=== PATIENT | female | born 1965 | race Asian ===

== ENCOUNTER 2024-05-28 02:58 | Emergency (ER) | payer BC, SELFPAY ==
[2024-05-28 02:59] VITALS: BMI 25.4
--- NOTE | 2024-05-28 03:00 | PD.EDHA ---
ED Headache RME/HPI General Chief Complaint: Headache Stated Complaint: HEADACHE THINKS BP HIGH Time Seen by Provider: 05/28/24 02:59 Arrival date/time: 05/28/24 02:58 RME / HPI RME / HPI Narrative: This section includes all my notes and documentations, including HPI, PE, and ED course. Chapo Majano MD HPI: 58yo female with a history of HTN on losartan (qHS), metoprolol (qAM) accompanied by her daughter presents to the ED for a chief complaint of a headache. Patient states her blood pressure has been elevated today, reporting the highest was 200s/100s. Patient states she took her losartan late today. She reports associated dizziness, lightheadedness, nausea, and cough. She denies any vomiting, chest pain or any other associated symptoms. No other complaints reported. ROS: All negative except as documented in HPI. Physical Exam: General: Alert and oriented. Appears uncomfortable. Eyes: Conjunctivae and lids clear. PERRL. EOMI. ENT: No nasal congestion. Pharynx normal. TM normal bilaterally. Neck: Supple. No carotid bruit. No JVD. Heart: RRR. Lungs: No respiratory distress. Good air movement. No rhonchi, wheezing, rales. Abdomen: Soft and nontender. Legs: No clubbing, cyanosis, edema. Skin: Warm and dry. Neuro: Alert and oriented X 3. Cranial nerves II to XII grossly normal. No peripheral motor deficits. I reviewed all diagnostic test results. My interpretation of the EKG is sinus rhythm with no acute ST?T changes. My review of the head CT report is no acute findings. Blood tests and urine tests unremarkable. At this point, diagnoses include hypertensive urgency. Treatment here included oral clonidine 0.3 mg and oral metoprolol 100 mg. Significant improvement noted both subjectively and objectively. Increase metoprolol and recommended more outpatient care. Based on my best medical judgment, made decision no further evaluation or treatment indicated at this time. Patient understands and agrees to the discharge instructions customized and printed, see below. Discharge Instructions from Dr. Majano printed for you: 1. After extensive evaluation, there is no immediately life-threatening condition. Such as stroke or brain tumor or heart attack. 2. But to prevent future heart attacks and strokes, replace your current metoprolol (50 mg every morning) TO metoprolol 100 mg in the morning and in the night as prescribed. You will live longer with lower BP and slower heart rate. 3. See your private doctor on 05/31/2024 for recheck and further care. To make sure there is no serious underlying heart condition, ask to help you get more tests for your heart that cannot be done here in the ER. Such as Holter Monitor (cardiac monitoring at home from a day to even a month), heart stress test (on treadmill or with medication), echocardiogram (imaging of your heart structures), heart catherization (checking for blockages in your heart arteries), and a referral to see a Administrative Assistant Receptionist. 4. Seek immediate medical care with worsening or with any concerns. Chapo Majano MD Related Data Home Medications ?Medication ?Instructions ?Recorded ?Confirmed losartan 100 mg tablet 1 tab PO HS 01/22/22 01/22/22 metoprolol succinate 25 mg 1 tab PO DAILY 01/22/22 01/22/22 tablet,extended release 24 hr Previous Rx's ?Medication ?Instructions ?Recorded docusate sodium 100 mg capsule 100 mg PO BID #40 caps 01/23/22 (Colace) hydrocodone 5 mg-acetaminophen 325 1 tab PO Q8H PRN pain (scale score 01/23/22 mg tablet 7-10) #15 tabs ibuprofen 600 mg tablet 600 mg PO Q8H PRN pain (scale 01/23/22 score 4-6) #15 tabs metoprolol succinate 100 mg 100 mg PO BID #60 ea 05/28/24 capsule sprinkle, ext. release 24 hr Allergies Allergy/AdvReac Type Severity Reaction Status Date / Time No Known Allergies Allergy Verified 05/28/24 03:02 Review of Systems Review of Systems Systems Reviewed: All systems reviewed, normal except as documented Past Medical History Past Medical History NEUROLOGIC: Negative Seizures CARDIAC: Positive Hypertension; Negative Cardiac Disorders or Congestive Heart Failure RESPIRATORY: Negative Chronic Obstructive Pulmonary Disease (COPD) or Asthma GENITOURINARY: Negative Renal Disease ENDOCRINE: Negative Diabetes Mellitus Type 1 or Diabetes Mellitus Type 2 HEMATOLOGIC: Negative Sickle Cell Disease OTHER HISTORY: Negative Blood Transfusions, Blood Transfusion Reaction or Anesthesia Reactions Family History FAMILY HISTORY: Negative Family Cardiac Disorders Social History SMOKING STATUS: Never smoker SUBSTANCE USE: does not use ED Exam Narrative Physical exam: As noted in HPI. Course Quality Measures none Orders Category Date Time Status Bedside COVID-19 Antigen Test NOW Care 05/28/24 03:11 Active EKG (ED ONLY) *Do not use* NOW Care 05/28/24 03:11 Completed Straight [In and Out Catheter] X1 Care 05/28/24 03:[address] head/brain wo con Stat Exams 05/28/24 03:11 Taken EKG (ED Only) Stat Exams 05/28/24 03:11 Draft CBC Stat Lab 05/28/24 03:40 Completed CMP [Comprehensive Metabolic Panel] Stat Lab 05/28/24 03:40 Completed Influenza A & B Rapid Panel Stat Lab 05/28/24 03:34 Completed Magnesium Stat Lab 05/28/24 03:40 Completed RSV [Respiratory Syncytial Virus Ag] Stat Lab 05/28/24 03:36 Completed TSH [Thyroid Stimulating Hormone] Stat Lab 05/28/24 03:40 Completed Troponin I Stat Lab 05/28/24 03:40 Completed UA, C/S IF [Urinalysis, C/S if Indicated] Stat Lab 05/28/24 04:03 Completed Metoprolol Tartrate [Lopressor] Med 05/28/24 03:09 Discontinued 100 mg PO X1 ONE Ondansetron Odt [Zofran Odt] Med 05/28/24 03:09 Discontinued 4 mg PO X1 ONE cloNIDine HCL [Catapres] Med 05/28/24 03:09 Discontinued 0.3 mg PO X1 ONE Vital Signs Vital signs: Vital Signs Temperature 98.4 F 05/28/24 03:08 Pulse Rate 91 05/28/24 03:08 Respiratory Rate 18 05/28/24 03:08 Blood Pressure 237/98 H 05/28/24 03:08 Pulse Oximetry (%) 99 05/28/24 03:08 Oxygen Delivery Method Room Air 05/28/24 03:08 Headache Patient data External records reviewed:: [facility] previous records (Per chart review, patient has no relevant previous ED visits.) Clinical information provided by:: patient Social determinants that could affect healthcare access:: none Patient has the following chronic illnesses:: HTN How is presenting disease/condition affected by chronic disease/condition?: exacerbated by Evaluation data The following diagnostics were reviewed and interpreted by me:: lab results, radiology exam(s) and EKG tracing(s) Lab and/or radiology exams considered but not ordered:: none Interpretation Summary: Hypertensive urgency Medications / Prescriptions Medications or Prescriptions considered but not ordered:: none Medication administrations:: Medication Administration History Discontinued Medications Clonidine (Clonidine Hcl 0.1 Mg Tablet) 0.3 mg PO X1 ONE Stop: 05/28/24 03:10 Last Admin: 05/28/24 03:31 Dose: 0.3 mg Documented By: PEDRO LUIS Metoprolol Tartrate (Metoprolol Tartrate 25 Mg Tablet) 100 mg PO X1 ONE Stop: 05/28/24 03:10 Last Admin: 05/28/24 03:31 Dose: 100 mg Documented By: PEDRO LUIS Ondansetron HCl (Ondansetron Odt 4 Mg Tabrap) 4 mg PO X1 ONE; Protocol Stop: 05/28/24 03:10 Last Admin: 05/28/24 03:32 Dose: 4 mg Documented By: PEDRO LUIS Clonidine and metoprolol Consultations Consultation(s) initiated? (list below): No Diagnosis Differential diagnosis headache: migraine, tension headache, subarachnoid hemorrhage and other (CVA, brain tumor, MS) Most likely diagnosis given after review of the tests above:: Hypertensive urgency Admission Indicated Admission indicated?: not indicated Explain why admission is indicated or not indicated:: Admission criteria Admission Request Was there a request for admission?: No Disposition Plan Disposition Plan: Discharge Discharge Attestation Discharge Attestation: The patient and all family members were given an opportunity to ask questions and understood the discharge instructions. Discharge instructions specifically effects, indications for sooner follow up or return to the emergency department, and the expected course of current diagnosis. Patient condition: Stable Discharge Plan Plan Patient Disposition: HOME (Self Care) Prescriptions/Referrals Prescriptions/Med Rec: New metoprolol succinate 100 mg capsule,alexy,ER 24hr 100 mg PO BID Qty: 60 0RF No Action metoprolol succinate 25 mg tablet extended release 24 hr 1 tab PO DAILY losartan 100 mg tablet 1 tab PO HS hydrocodone-acetaminophen 5-325 mg tablet 1 tab PO Q8H MDD 3 PRN (Reason: pain (scale score 7-10)) Qty: 15 0RF docusate sodium [Colace] 100 mg capsule 100 mg PO BID Qty: 40 0RF ibuprofen 600 mg tablet 600 mg PO Q8H PRN (Reason: pain (scale score 4-6)) Qty: 15 0RF Referrals: Trevor Kumar MD [Primary Care Provider] - In 1 week Problem List Clinical Impression: Hypertension Patient/Caregiver Discharge Instructions Discharge Activity: activity as tolerated Education Materials: ED Hypertension, Established Additional Instructions: Discharge Instructions from Dr. Majano printed for you: 1. After extensive evaluation, there is no immediately life-threatening condition. Such as stroke or brain tumor or heart attack. 2. But to prevent future heart attacks and strokes, replace your current metoprolol (50 mg every morning) TO metoprolol 100 mg in the morning and in the night as prescribed. You will live longer with lower BP and slower heart rate. 3. See your private doctor on 05/31/2024 for recheck and further care. To make sure there is no serious underlying heart condition, ask to help you get more tests for your heart that cannot be done here in the ER. Such as Holter Monitor (cardiac monitoring at home from a day to even a month), heart stress test (on treadmill or with medication), echocardiogram (imaging of your heart structures), heart catherization (checking for blockages in your heart arteries), and a referral to see a Administrative Assistant Receptionist. 4. Seek immediate medical care with worsening or with any concerns. Print Language: Indonesian Stand Alone Forms: [facility] Award Info., Patient Portal Info Letter
[2024-05-28 03:08] VITALS: BP 237/98; PULSE 91; RESP 18; TEMP 36.9; O2SAT 99
--- NOTE | 2024-05-28 03:11 | XR_ITS ---
Examination: CT brain head without contrast. 2-D sagittal coronal reconstructions Date and time of exam:May 28, 2024 0325 hrs. Indications: High blood pressure with headache beginning one hour ago CTDI: vol (mGy):47.60 DLP: (mGycm):972 Technique: Multiple CT axial sections of the brain have been obtained, 5 mm slice thickness. Contrast has not been administered. 2-D sagittal, coronal reconstructions have been obtained Low dose protocols were performed. One or more of the following dose reduction techniques were used; automated exposure control, adjustment of the mA and/or KV according to patient size, use of iterative reconstruction technique. Findings: No significant ventricular enlargement. Intra-axial or extra-axial hemorrhage density is not seen. No mass effect or midline shift Basal cisterns are not remarkable. Fourth ventricle is midline. Cranial vault intact. Impression: Negative for acute hemorrhage, mass effect or midline shift Moderate chronic ethmoid sinusitis
--- NOTE | 2024-05-28 03:11 | EKG_ITS ---
[facility] Test Date: 2024-05-28 Pat Name: TERRY HOLLIDAY Department: Room: - Gender: Female [employer]: : 1965 Requested By: Chapo Kilgore Order Number: [id number] Reading MD: Chapo Kilgore Measurements Intervals [place] Rate: 81 P: 31 IN: 143 QRS: 13 QRSD: 68 T: 39 QT: 338 QTc: 395 Interpretive Statements SINUS RHYTHM NONSPECIFIC T-WAVE ABNORMALITY Compared to ECG 02/10/2021 14:36:34 T-wave abnormality now present /store/S0/[id number].pdf
[2024-05-28 03:31] VITALS: BP 237/98; PULSE 91
[2024-05-28] MEDS: METOPROLOL TARTRATE 25 MG TABLET 100 MG PO (03:31)
[2024-05-28] MEDS: cloNIDine HCL 0.1 MG TABLET 0.3 MG PO (03:31)
[2024-05-28] MEDS: ONDANSETRON ODT 4 MG TABRAP PO (03:32)
[2024-05-28 04:06] LABS: Basophils # (Auto) 0.1 Thou/mm3 (0.0-0.2); Basophils % (Auto) 1 % (0-2.5); Eosinophils # (Auto) 0.5 Thou/mm3 (0.0-0.5); Eosinophils % (Auto) 4 % (0-10); Hematocrit 43.4 % (36.0-46.0); Hemoglobin 14.5 g/dL (12.0-16.0); Immature Granulocytes % (Auto) 1 % (0-0); Immature Granulocytes Auto 0.06 Thou/mm3 (0.00-0.00); Lymphocytes % (Auto) 24 % (10-50); Mean Corpuscular HGB Conc 33.4 g/dl (31.0-37.0); Mean Corpuscular Hemoglobin 29.4 pg (25.0-35.0); Mean Corpuscular Volume 88 fL (80-100); Monocytes # (Auto) 0.6 Thou/mm3 (0.0-0.8); Monocytes % (Auto) 5 % (0-12); Neutrophils # (Auto) 8.1 Thou/mm3 (1.8-7.7); Neutrophils % (Auto) 66 % (37-80); Nucleated Red Blood Cell % 0 /100 WBC (0); Platelet Count 282 Thou/mm3 (140-440); RDW Standard Deviation 40.7 fL (36.4-46.3); Red Blood Count 4.93 Miln/mm3 (4.00-5.20); White Blood Count 12.3 Thou/mm3 (3.6-11.0)
[2024-05-28 04:19] LABS: Alanine Aminotransferase 43 U/L (10-49); Albumin, Serum 4.7 gm/dL (3.4-4.8); Albumin/Globulin Ratio 1.5 (1.2-2.2); Alkaline Phosphatase 123 U/L (46-116); Anion Gap 10 (7-16); Aspartate Amino Transferase 22 U/L (0-34); BUN/Creatinine Ratio 14 Ratio (12-20); Bilirubin,Total 0.7 mg/dL (0.3-1.2); Blood Urea Nitrogen 10 mg/dL (9-23); Calcium 9.9 mg/dL (8.3-10.6); Calcium (Corrected) 9.9 mg/dL (8.5-10.1); Carbon Dioxide 26.4 mMol/L (20.0-31.0); Chloride 99 mMol/L (98-107); Creatinine (Component) 0.7 mg/dL (0.6-1.3); Estimated Creatinine Clearance 68.7 mL/min (>60); Globulin 3.1 gm/dL (2.3-3.5); Glucose 174 mg/dL (74-106); Magnesium 1.9 mg/dL (1.6-2.6); Osmolality,Calculated 273 (275-295); Potassium 4.4 mMol/L (3.4-5.1); Sodium 135 mMol/L (136-145); Thyroid Stimulating Hormone 1.09 uIU/mL (0.55-4.78); Total Protein 7.8 gm/dL (5.7-8.2); Troponin I < 0.020 ng/mL (0.0-0.045); eGFR > 60 See Note
[2024-05-28 04:25] LABS: Influenza A Ag Negative; Influenza B Ag Negative
[2024-05-28 04:26] LABS: Respiratory Syncytial Virus Ag Negative (Negative)
[2024-05-28 04:50] LABS: Collection Type, Urine Clean Catch
[2024-05-28 05:05] LABS: Bilirubin,Urine Negative (Negative); Blood,Urine Trace (Negative); Clarity,Urine Clear (Clear/Hazy); Color,Urine Lt-Yellow (Lt Yel-Yel); Culture Indicated,Urine Not Indicated; Glucose, Urine Negative (Negative); Ketones,Urine Negative (Negative); Leukocyte Esterase,Urine Negative (Negative); Nitrite,Urine Negative (Negative); Protein,Urine Negative (Neg - Trace); RBC,Urine 7 /hpf (0-3); Specific Gravity,Urine 1.016 (1.001-1.035); Squamous Epithelial Cell,Urine 1 /hpf (0-5); Urobilinogen,Urine Negative mg/dL (0.0-1.0); WBC,Urine 1 /hpf (0-5)
[2024-05-28 05:11] VITALS: BP 124/75; PULSE 94; RESP 17; TEMP 36.9; O2SAT 99
--- NOTE | 2024-05-28 05:34 | PRELIM_ITS ---
CT scan of the head without intravenous contrast (axial sections with sagittal and coronal reformats) May 28, 2024 at 0325 hoursClinical History: Headache and high BP.Comparison: No prior study is available for comparison. Findings:There is no evidence of intracranial hemorrhage, mass effect or mi dline shift. There is mild volume loss. The calvarium is unremarkable. The mastoid air cells are briseida r. There is mild mucosal thickening in bilateral ethmoid sinuses.Impression:1. No evidence of intracr anial hemorrhage, mass effect or midline shift. 2. Mild volume loss.3. Other findings as described ab ove. Report Electronically Signed By: Rob Bernabe 05/28/2024 5:33:11 AM [EST]
== END 2024-05-28 05:47 | disposition home or self-care (01) ==
PROVIDERS: Emergency Provider Emergency Medicine; PCP Family Medicine
DX: I10 Essential (primary) hypertension (principal); R51.9 Headache, unspecified
CPT/HCPCS: 36415; 70450; 80053; 81001; 83735; 84443; 84484; 85025; 87502; 87634; 87811; 93005; 99284; Q0162; A9270

== ENCOUNTER 2024-06-01 03:30 | Emergency (ER) | payer BC, SELFPAY ==
[2024-06-01 03:42] VITALS: BP 222/106; PULSE 78; RESP 16; TEMP 36.8; O2SAT 99
[2024-06-01 04:04] VITALS: BP 222/106; PULSE 78
[2024-06-01] MEDS: hydrALAZINE HCL 25 MG TABLET PO (04:04)
[2024-06-01 05:05] VITALS: BP 170/77; PULSE 89; RESP 18; TEMP 36.7; O2SAT 98
--- NOTE | 2024-06-01 05:50 | PD.EDHA ---
ED Headache RME/HPI General Chief Complaint: General Adult/Misc Complain Stated Complaint: HIGH BP, FACIAL NUMBNESS Time Seen by Provider: 06/01/24 03:54 Arrival date/time: 06/01/24 03:30 58F with history of HTN presents to ED with elevated BPs and facial numbness. Patient was here several days ago with normal labwork and head CT showing chronic sinusitis. Limitations: no limitations Related Data Home Medications ?Medication ?Instructions ?Recorded ?Confirmed losartan 100 mg tablet 1 tab PO HS 01/22/22 01/22/22 metoprolol succinate 25 mg 1 tab PO DAILY 01/22/22 01/22/22 tablet,extended release 24 hr Previous Rx's ?Medication ?Instructions ?Recorded docusate sodium 100 mg capsule 100 mg PO BID #40 caps 01/23/22 (Colace) hydrocodone 5 mg-acetaminophen 325 1 tab PO Q8H PRN pain (scale score 01/23/22 mg tablet 7-10) #15 tabs ibuprofen 600 mg tablet 600 mg PO Q8H PRN pain (scale 01/23/22 score 4-6) #15 tabs metoprolol succinate 100 mg 100 mg PO BID #60 ea 05/28/24 capsule sprinkle, ext. release 24 hr Allergies Allergy/AdvReac Type Severity Reaction Status Date / Time No Known Allergies Allergy Verified 06/01/24 03:33 Review of Systems Review of Systems Systems Reviewed: All systems reviewed, normal except as documented Constitutional Constitutional: Reports system reviewed and no additional complaints, except as documented, Denies fever(s) and Denies headache(s) ENT Ears, Nose, Mouth, and Throat: Denies disequilibrium and Denies headache(s) Cardiovascular Cardiovascular: Reports system reviewed and no additional complaints, except as documented, Denies chest pain and Denies dyspnea Respiratory Respiratory: Reports system reviewed and no additional complaints, except as documented, Denies cough and Denies dyspnea Gastrointestinal Gastrointestinal: Reports system reviewed and no additional complaints, except as documented, Denies abdominal pain, Denies nausea and Denies vomiting Musculoskeletal Musculoskeletal: Reports numbness Neurologic Neurologic: Reports system reviewed and no additional complaints, except as documented, Reports as per HPI, Denies confusion, Denies disequilibrium, Denies headache(s) and Reports numbness Psychiatric Psychiatric: Denies confusion Past Medical History Past Medical History NEUROLOGIC: Negative Seizures CARDIAC: Positive Hypertension; Negative Cardiac Disorders or Congestive Heart Failure RESPIRATORY: Negative Chronic Obstructive Pulmonary Disease (COPD) or Asthma GENITOURINARY: Negative Renal Disease ENDOCRINE: Negative Diabetes Mellitus Type 1 or Diabetes Mellitus Type 2 HEMATOLOGIC: Negative Sickle Cell Disease OTHER HISTORY: Negative Blood Transfusions, Blood Transfusion Reaction or Anesthesia Reactions Family History FAMILY HISTORY: Negative Family Cardiac Disorders Social History SMOKING STATUS: Never smoker SUBSTANCE USE: does not use ED Exam General Limitations: Present no limitations General appearance: Present alert and in no apparent distress Head Head exam: Present atraumatic Eye Eye exam: Present normal appearance, PERRL and EOMI ENT ENT exam: Present normal exam, normal oropharynx and mucous membranes moist Neck Neck exam: Present normal inspection, full ROM and trachea midline Chest Chest inspection: Present normal inspection and symmetric chest wall rise Respiratory Respiratory exam: Present normal lung sounds bilaterally Cardiovascular Cardiovascular exam: Present regular rate, normal rhythm and normal heart sounds Abdominal Exam Abdominal exam: Present soft and normal bowel sounds Extremities Exam Extremities exam: Present normal inspection and full ROM Back Exam Back exam: Present normal inspection and full ROM Neurological Exam Neurological exam: Present alert, oriented X3 and CN II-XII intact Psychiatric Psychiatric exam: Present normal affect and normal mood Skin Skin exam: Present warm, dry, intact and normal color Course Quality Measures none Orders Category Date Time Status hydrALAZINE HCL [Apresoline] Med 06/01/24 03:55 Discontinued 25 mg PO X1 ONE Vital Signs Vital signs: Vital Signs Temperature 98.3 F 06/01/24 03:42 Pulse Rate 78 06/01/24 03:42 Respiratory Rate 16 06/01/24 03:42 Blood Pressure 222/106 H 06/01/24 03:42 Pulse Oximetry (%) 99 06/01/24 03:42 Oxygen Delivery Method Room Air 06/01/24 03:42 O2 at 99% on RA and WNLs Headache MDM Narrative MDM Narrative:: 58F with history of HTN presents to ED with elevated BPs and facial numbness. Patient was here several days ago with normal labwork and head CT showing chronic sinusitis. Physical exam reveals normal pupil response and EOM. ENT clear. No gross sinus tenderness. CN II-XII grossly intact. Strength equal bilaterally. Patient is afebriel, calm, and alert. Meds lowered BP. Numbness likely due to chronic sinusitis. Clothing Supervisor given. Patient data External records reviewed:: [facility] previous records Clinical information provided by:: patient Social determinants that could affect healthcare access:: none Patient has the following chronic illnesses:: HTN How is presenting disease/condition affected by chronic disease/condition?: no chronic disease Evaluation data The following diagnostics were reviewed and interpreted by me:: other (specify) (none) Lab and/or radiology exams considered but not ordered:: not ordered Interpretation Summary: n/a Medications / Prescriptions Medications or Prescriptions considered but not ordered:: ordered Medication administrations:: Medication Administration History Discontinued Medications Hydralazine HCl (Hydralazine Hcl 25 Mg Tablet) 25 mg PO X1 ONE Stop: 06/01/24 03:56 Last Admin: 06/01/24 04:04 Dose: 25 mg Documented By: CVL above Consultations Consultation(s) initiated? (list below): No Diagnosis Differential diagnosis headache: migraine, tension headache, subarachnoid hemorrhage, headache, meningitis, sinusitis, postconcussion syndrome and other (HTN) Most likely diagnosis given after review of the tests above:: HTN and sinusitis Admission Indicated Admission indicated?: not indicated Admission Request Was there a request for admission?: No Disposition Plan Disposition Plan: Discharge Discharge Attestation Discharge Attestation: The patient and all family members were given an opportunity to ask questions and understood the discharge instructions. Discharge instructions specifically effects, indications for sooner follow up or return to the emergency department, and the expected course of current diagnosis. Patient condition: Stable Discharge Plan Plan Patient Disposition: HOME (Self Care) Disposition Comment: Stable Prescriptions/Referrals Prescriptions/Med Rec: No Action metoprolol succinate 25 mg tablet extended release 24 hr 1 tab PO DAILY losartan 100 mg tablet 1 tab PO HS hydrocodone-acetaminophen 5-325 mg tablet 1 tab PO Q8H MDD 3 PRN (Reason: pain (scale score 7-10)) Qty: 15 0RF docusate sodium [Colace] 100 mg capsule 100 mg PO BID Qty: 40 0RF ibuprofen 600 mg tablet 600 mg PO Q8H PRN (Reason: pain (scale score 4-6)) Qty: 15 0RF metoprolol succinate 100 mg capsule,sprinkle,ER 24hr 100 mg PO BID Qty: 60 0RF Problem List Clinical Impression: Hypertension, Sinusitis Patient/Caregiver Discharge Instructions Education Materials: Chronic Sinusitis Additional Instructions: Please follow-up with PCP within 24-48 hours and return immediately if symptoms worsen. Follow-up with PCP for HTN control. Sinusitis is causing the facial numbness. See ENT if problem persists. Print Language: Cuban Stand Alone Forms: Patient Portal Info Letter PA/SOFTWARE MAINTENANCE ENGINEER Supervising Physician JAKUB/BERT Supervising Physician: Dr. Majano
== END 2024-06-01 05:22 | disposition home or self-care (01) ==
LOC: SERX 05:32
PROVIDERS: Emergency Provider Emergency Medicine; PCP Family Medicine
DX: J32.9 Chronic sinusitis, unspecified (principal); I10 Essential (primary) hypertension
CPT/HCPCS: 99282; A9270